=== PATIENT | male | born 1950 | race African-American/Black ===

== ENCOUNTER 2024-04-12 23:40 | Emergency (ER) | payer OTHER, MEDICAID ==
[~2024-04-12] VITALS: Ht 175.3 cm; Wt 104.8 kg
[2024-04-12 23:57] VITALS: BP_SYST 160; PULSE 61; RESP 18; TEMP 97.7; O2SAT 94
[2024-04-13 00:30] VITALS: BP_SYST 156; PULSE 63; RESP 18; O2SAT 95
== END 2024-04-13 00:35 | disposition home or self-care (01) ==
LOC: SED 23:40
DX: S09.8XXA Other specified injuries of head, initial encounter (principal); M25.572 Pain in left ankle and joints of left foot; M54.2 Cervicalgia; I10 Essential (primary) hypertension; I48.91 Unspecified atrial fibrillation; Z79.01 Long term (current) use of anticoagulants; W10.8XXA Fall (on) (from) other stairs and steps, initial encounter; Y93.89 Activity, other specified; Y92.89 Other specified places as the place of occurrence of the external cause; Y99.8 Other external cause status
CPT/HCPCS: 70450-TC; 99284